=== PATIENT | male | born 1930 | race Caucasian/White ===

== ENCOUNTER 2019-06-27 23:49 | Emergency (ER) | payer OTHER ==
[~2019-06-27] VITALS: Ht 182.9 cm; Wt 88.5 kg
[2019-06-27 23:59] VITALS: BP 170/82
--- NOTE | 2019-06-28 | NUR ---
BT IBS FOR C/O ABD PAIN AND "I FEELU LIKE MY THROAT IS CLOSING UP BECAUSE OF ALLERGIC REACTION". PT HAD SHRIMP WHICH SHE IS ALLERGIC TO. PT AAOX4, RR EVEN AND UNLABORED W NAD NOTED AT THIS TIME. AWAITING FOR MD WOOD
--- NOTE | 2019-06-28 00:20 | NUR ---
f/c was flushed w/ 30cc of NS. cath is flushing well . No resistance noted
--- NOTE | 2019-06-28 00:25 | NUR ---
BLADDER SCANNER DONE. 769 ML URINE RETAINED. MADE AWARE
--- NOTE | 2019-06-28 00:35 | NUR ---
SO CATHETER URINE OUTPUT 600 ML. URINE YELLOW, NO FOUL ODOR NOTED.
[2019-06-28 00:53] LABS: APPEARANCE,URINE Clear (CLEAR); BILIRUBIN,URINE Negative (NEGATIVE); BLOOD, URINE Large Ery/uL (NEGATIVE); COLOR,URINE Yellow (YELLOW); KETONES,URINE Negative (NEGATIVE); LEUKOCYTE ESTERASE ,URINE Negative (NEGATIVE); NITRITE, URINE Negative (NEGATIVE); PH,URINE 5.5 (5.0-8.0); PROTEIN,URINE Negative (NEGATIVE); UGLUCOSE Negative (NEGATIVE); UROBILINOGEN,URINE 0.2 EU/dL (0.2)
[2019-06-28 01:12] LABS: BACTERIA,URINE Rare /HPF (None Seen); RBC,URINE 21-50 /HPF (0-2); SQUAMOUS EPITHELIAL CELL,UR Rare /HPF (None Seen); WBC,URINE 0-2 /HPF (0-3)
--- NOTE | 2019-06-28 01:29 | NUR ---
Patient discharged to home in stable condition. Written and verbal after care instructions given. Patient verbalizes understanding of instruction.
== END 2019-06-28 01:29 | disposition home or self-care (01) ==
LOC: ER 23:49
DX: R33.9 Retention of urine, unspecified (principal); I10 Essential (primary) hypertension; Z98.890 Other specified postprocedural states
CPT/HCPCS: 81000-TC

== ENCOUNTER 2019-07-01 02:37 | Emergency (ER) | payer OTHER ==
[~2019-07-01] VITALS: Ht 182.9 cm; Wt 86.2 kg
[2019-07-01 03:40] LABS: BASOPHILS # (AUTO) 0.1 /CMM (0.0-0.2); BASOPHILS % (AUTO) 0.6 % (0.0-2.0); EOSINOPHILS % (AUTO) 1.9 % (0.0-6.0); HEMATOCRIT 35 % (39-51); HEMOGLOBIN 11.8 g/dL (13.5-17.5); LYMPHOCYTES # (AUTO) 1.2 /CMM (0.8-4.8); LYMPHOCYTES % (AUTO) 13.1 % (20.0-44.0); MEAN CORPUSCULAR HGB CONC 34 g/dl (31.0-36.0); MEAN CORPUSCULAR VOLUME 88 fL (80-96); MONOCYTES # (AUTO) 0.6 /CMM (0.1-1.30); MONOCYTES % (AUTO) 6.3 % (2.0-12.0); NEUTROPHILS # (AUTO) 7.1 /CMM (1.8-8.9); NEUTROPHILS % (AUTO) 78.1 % (43.0-81.0); PLATELET COUNT (AUTO) 229 /CMM (150-450); RED BLOOD CELL COUNT(AUTO) 3.94 MIL/uL (4.5-6.0); WHITE BLOOD COUNT (AUTO) 9.1 K/uL (4.3-11.0)
--- NOTE | 2019-07-01 03:40 | NUR ---
Patient came to er c/o urinary retention/ leakage in the maldonado catheter. Patient states he was in the ER 2 days ago. Pt's daughter states that the maldonado catheter was draining. Patient c/o of pelvic pain. AAOX4. no sob breathing evenly and unlabored on room air.
[2019-07-01 03:43] LABS: CALCIUM, SERUM 8.4 mg/dL (8.5-10.1); CREATININE 1.2 mg/dL (0.6-1.3); POTASSIUM 3.7 mmol/L (3.5-5.1)
--- NOTE | 2019-07-01 03:50 | NUR ---
FLUSHED SO CATHETER W/ 30 CC OF NORMAL SALINE.
--- NOTE | 2019-07-01 03:54 | NUR ---
203mL documented in bladder scanner
[2019-07-01] MEDS ORDERED: LIDOCAINE 2% JEL UROJET 10 ML MM ONE (03:59)
[2019-07-01 04:26] LABS: APPEARANCE,URINE CLEAR (CLEAR); BILIRUBIN,URINE NEGATIVE (NEGATIVE); BLOOD, URINE LARGE Ery/uL (NEGATIVE); COLOR,URINE RED (YELLOW); KETONES,URINE NEGATIVE (NEGATIVE); LEUKOCYTE ESTERASE ,URINE MODERATE (NEGATIVE); NITRITE, URINE NEGATIVE (NEGATIVE); PROTEIN,URINE 30 mg/dl (NEGATIVE); UGLUCOSE NEGATIVE (NEGATIVE); UROBILINOGEN,URINE 0.2 EU/dL (0.2)
[2019-07-01 04:54] LABS: BACTERIA,URINE Few /HPF (None Seen); RBC,URINE 51-80 /HPF (0-2); SQUAMOUS EPITHELIAL CELL,UR Few /HPF (None Seen); WBC,URINE 21-50 /HPF (0-3)
[2019-07-01] MEDS ORDERED: CEFTRIAXONE 1GM BAG (ER ONLY) 1 GM/50 ML PIGGYBACK IV ONE (05:00)
--- NOTE | 2019-07-01 05:29 | NUR ---
SO CATHETER IS DRAINING WITH URINE.
[2019-07-01] MEDS ORDERED: CEFTRIAXONE 1 G VIAL IM ONE (05:30)
[2019-07-01] MEDS ORDERED: LIDOCAINE /MPF 1% VIAL 5 ML VIAL ONE (05:33)
[2019-07-01] MEDS ORDERED: CEFTRIAXONE 1 G VIAL ONE (05:33)
[2019-07-01 06:19] VITALS: BP 166/88
--- NOTE | 2019-07-01 06:19 | NUR ---
Patient discharged to home in stable condition. Written and verbal after care instructions given. Patient verbalizes understanding of instruction. Prescriptions provided for patient.
== END 2019-07-01 06:28 | disposition home or self-care (01) ==
LOC: ER 02:39
DX: T83.511A Infection and inflammatory reaction due to indwelling urethral catheter, initial encounter (principal); I10 Essential (primary) hypertension; Z98.890 Other specified postprocedural states
CPT/HCPCS: 36415; 51702; 80048; 81001; 85025; 85610; 85730; 87086; 96372; 99284; J0696; J3490 ×2; 81000-TC; 87186-TC